=== PATIENT | female | born 1960 | race Caucasian/White ===

== ENCOUNTER → 2018-02-20 | Outpatient (CLI) | payer OTHER ==
[~2018-02-20] MED LIST: LIPITOR10 MG PO; PROTONIX40 M1 PO
== END ==
LOC: M.RAD 02-18 11:40
DX: Z12.31 Encounter for screening mammogram for malignant neoplasm of breast (principal)

== ENCOUNTER 2018-05-25 10:47 | Emergency (ER) | payer OTHER ==
[~2018-05-25] VITALS: Ht 165.1 cm; Wt 70.3 kg
[2018-05-25] MEDS ORDERED: ZETIA10 MG PO (10:51)
[2018-05-25 11:27] LABS: ABSOLUTE BASOPHILS 0.1 thou/uL (0.0-0.2); ABSOLUTE EOSINOPHILS 0.3 thou/uL (0.0-0.7); ABSOLUTE LYMPHOCYTES 1.2 thou/uL (0.8-5.3); ABSOLUTE MONOCYTES 0.4 thou/uL (0.0-1.2); ABSOLUTE NEUTROPHILS 3.5 thou/uL (1.6-8.1); BASOPHILS 2.2 %; EOSINOPHILS 6.3 %; HEMATOCRIT 39.7 % (37.0-47.0); HEMOGLOBIN 13.3 gm/dL (12.0-15.0); LYMPHOCYTES 21.1 %; MCH 32.4 pg (26.0-34.0); MCHC 33.4 g/dL (28.0-37.0); MCV 97.1 fL (80.0-100.0); MONOCYTES 6.8 %; MPV 7.8 fl. (7.2-11.1); NUCLEATED RBCS 0 /100WBC; PLATELET COUNT* 228 thou/uL (150-400); POLYS 63.6 %; RBC 4.09 mil/uL (4.20-5.00); RDW-CV 12.9 % (10.5-14.5); WBC 5.5 thou/uL (4.0-11.0)
[2018-05-25 11:39] LABS: ANION GAP 5 mmol/L (7-16); BUN 9 mg/dL (7-18); CHLORIDE 107 mmol/L (98-107); CO2 29 mmol/L (21-32); CREATININE 0.8 mg/dL (0.6-1.3); GLUCOSE 91 mg/dL (70-99); POTASSIUM 3.7 mmol/L (3.5-5.1); SODIUM 141 mmol/L (136-145)
[2018-05-25 11:49] LABS: ALBUMIN 3.6 g/dL (3.4-5.0); ALKALINE PHOSPHATASE 49 U/L (46-116); NT-PRO BRAIN NAT PEPTIDE 46 pg/mL (<300); SGOT 20 U/L (15-37); SGPT 27 U/L (30-65); TOTAL BILIRUBIN 0.2 mg/dL (<0.1-1.0); TOTAL PROTEIN 6.7 g/dL (6.4-8.2); TROPONIN-I LEVEL <0.06 ng/mL (<0.06)
[2018-05-25 12:35] VITALS: BP 118/79
--- NOTE | 2018-05-25 15:03 | EKG ---
[place] [address] ELECTROCARDIOGRAM REPORT Name: DAIJA HAYNES Room: [facility]#: [id number] Admission: 05/25/18 Attend Phys: Discharge: Date of : 62 Report #: [id number] THIS REPORT FOR: //name// [facility] ED Test Date: 2018-05-25 Test Time: 10:49:43 Pat Name: DAIJA ROMEROLIVAN Department: Room: Gender: F Skin Piler: ELIZA : 1960 Requested By: Chivo Murrell Order Number: [id number] MD: Gasper Davis Measurements Intervals [place] Rate: 99 P: 26 MA: 116 QRS: -10 QRSD: 95 T: -33 QT: 344 QTc: 442 Interpretive Statements Sinus rhythm Low voltage, precordial leads RSR' in V1 or V2, right VCD or RVH Borderline T abnormalities, inferior leads Compared to ECG 06/17/2006 00:22:11 Low QRS voltage now present T-wave abnormality now present Electronically Signed On 05-25-2018 15:02:55 [employer] by Gasper Davis [email or web address] <ELECTRONICALLY SIGNED> By: Gasper Davis MD, [facility] 05/25/18 1502 [id number] Gasper Davis MD, [facility] /EPI
[2018-05-25 21:07] LABS: T3 UPTAKE 31 % (24-39)
== END 2018-05-25 12:43 | disposition home or self-care (01) ==
LOC: M.ERS 10:47
PROVIDERS: Emergency Medicine
DX: I47.1 Supraventricular tachycardia (principal); Z91.040 Latex allergy status; Z88.8 Allergy status to other drugs, medicaments and biological substances

== ENCOUNTER → 2019-10-27 | Outpatient (CLI) | payer OTHER ==
[~2019-10-27] MED LIST changes: +ZETIA10 MG PO
== END ==
LOC: M.RAD 10:00
PROVIDERS: ATTEND General Practice
DX: Z12.31 Encounter for screening mammogram for malignant neoplasm of breast (principal)

== ENCOUNTER → 2021-01-23 | Outpatient (CLI) | payer OTHER | LOC: M.RAD 15:46 | PROVIDERS: ATTEND General Practice | DX: Z12.31 Encounter for screening mammogram for malignant neoplasm of breast (principal) ==